=== PATIENT | female | born 1965 | race Caucasian/White ===

== ENCOUNTER → 2019-09-04 09:10 | Outpatient (CLI) | payer OTHER, SELFPAY ==
--- NOTE | ~2019-09-04 | MMUS_ITS ---
EXAMINATION: MM diagnostic shira RT w jaren, US breast RT limited HISTORY: Right breast asymmetries on screening mammogram TECHNIQUE: Additional 3-D tomosynthesis images of the right breast were performed and synthetic 2-D i mages were generated. CAD analysis was submitted and interpreted. High resolution limited right breas t ultrasound was performed. COMPARISON: 08/31/2019 FINDINGS: MAMMOGRAPHIC FINDINGS: There is a persistent bilobed asymmetry in the middle third of the outer breast at the 9:00 location 4.5 cm from the nipple. The asymmetry in the mediolateral oblique view described in the upper breast on screening mammogram does not persist with spot compression. No suspicious calcification is identif ied. ULTRASOUND: There is a 7 mm x 4 mm oval, circumscribed, parallel, hypoechoic mass with no posterior features or i nternal vascularity at the 9:00 location 2 cm from the nipple. A 3 mm x 2 mm mass with similar sonogr aphic features is seen at the 10:00 location 7 cm from the nipple. IMPRESSION: 1. Probably benign right breast findings. 2. Recommend 6 month follow-up right diagnostic mammogram and ultrasound. BI-RADS category 3, probably benign findings. Reviewed, dictated and finalized at location A. IMPRESSION: 1. Probably benign right breast findings. 2. Recommend 6 month follow-up right diagnostic mammogram and ultrasound. BI-RADS category 3, probably benign findings.
== END ==
DX: N64.89 Other specified disorders of breast (principal); R92.8 Other abnormal and inconclusive findings on diagnostic imaging of breast
CPT/HCPCS: 76642; 77061; 77065; G0279

== ENCOUNTER → 2020-04-18 08:38 | Outpatient (CLI) | payer OTHER, SELFPAY ==
--- NOTE | ~2020-04-18 | MMUS_ITS ---
EXAMINATION: MM diagnostic shira RT w jaren, US breast RT limited HISTORY: Six-month follow-up TECHNIQUE: ML, MLO and cc full field and spot 3-D tomosynthesis images of the right breast were perfo rmed and synthetic 2-D images were generated. CAD analysis was submitted and interpreted. High resolu tion breast ultrasound was performed. COMPARISON: 09/04/2019 diagnostic right digital mammogram and limited right breast ultrasound BREAST PARENCHYMAL COMPOSITION: There are scattered areas of fibroglandular density. FINDINGS: MAMMOGRAPHIC FINDINGS: Stable approximate 5 x 20 mm bilobed opacity in the outer mid right breast. Stable 4 mm circumscribed opacity in the anterior outer mid right breast. ULTRASOUND: 10:00 4 cm from nipple: Circumscribed hypoechoic 5.4 x 6.4 x 6.1 mm lesion without internal vasculari ty or posterior shadowing 9:00 2 cm from nipple: Parallel circumscribed hypoechoic 6.2 x 4.1 x 5.9 mm hypoechoic lesion without internal vascularity or posterior shadowing. No suspicious solid lesion or shadowing is noted. IMPRESSION: 1. Probable benign hypoechoic subcentimeter solid lesions at 9:00 and 10:00 2. 6 month diagnostic right mammogram and right targeted breast ultrasound examination are recommende d BI-RADS category 3, probably benign findings. Reviewed, dictated and finalized at location A. IMPRESSION: 1. Probable benign hypoechoic subcentimeter solid lesions at 9:00 and 10:00 2. 6 month diagnostic right mammogram and right targeted breast ultrasound exam ination are recommended BI-RADS category 3, probably benign findings.
== END ==
PROVIDERS: Visit Provider Nurse Practitioner
DX: R92.8 Other abnormal and inconclusive findings on diagnostic imaging of breast (principal)
CPT/HCPCS: 76642; 77061; 77065; G0279

== ENCOUNTER 2020-10-17 13:58 | Outpatient (CLI) | payer OTHER, SELFPAY ==
--- NOTE | ~2020-10-17 | MMUS_ITS ---
EXAMINATION: MM diagnostic shira BI w jaren, US breast RT limited HISTORY: Six-month follow-up for probably benign right breast mass TECHNIQUE: Craniocaudal, mediolateral, and mediolateral oblique 3-D tomosynthesis images of the aleah ts were performed and synthetic 2-D images were generated. CAD analysis was submitted and interpreted . High resolution limited right breast ultrasound was performed. COMPARISON: 04/18/2020, 09/04/2019, 08/31/2019 BREAST PARENCHYMAL COMPOSITION: There are scattered areas of fibroglandular density. FINDINGS: MAMMOGRAPHIC FINDINGS: Right breast: Again seen is a bilobed asymmetry in the middle third of the outer breast at the 9:00 l ocation 4.5 cm from the nipple on the mediolateral oblique view. There has been no suspicious interva l change. No suspicious calcification or architectural distortion are identified. Left breast: There is no evidence of suspicious mass, calcification, or architectural distortion to suggest malignancy. There has been no suspicious interval change. ULTRASOUND: The previously described mass at the 10:00 location is no longer identified. A stable 7 mm x 4 mm ova l, circumscribed, parallel, hypoechoic mass is present at the 9:00 location 4 cm from the nipple. The re is questionable posterior acoustic shadowing on some images however the mass otherwise remains unc hanged. IMPRESSION: 1. Probably benign right breast mass. 2. Recommend 6 month follow-up right diagnostic mammogram and ultrasound. BI-RADS category 3, probably benign findings. Reviewed, dictated and finalized at location A. IMPRESSION: 1. Probably benign right breast mass. 2. Recommend 6 month follow-up right diagnostic mammogram and ultrasound. BI-RADS category 3, probably benign findings.
== END 2020-10-17 13:59 ==
PROVIDERS: PCP Nurse Practitioner; Visit Provider Nurse Practitioner
DX: R92.8 Other abnormal and inconclusive findings on diagnostic imaging of breast (principal)
CPT/HCPCS: 76642; 77062; 77066; G0279

== ENCOUNTER → 2021-04-20 09:22 | Outpatient (CLI) | payer OTHER, SELFPAY ==
--- NOTE | ~2021-04-20 | MMUS_ITS ---
EXAMINATION: MM diagnostic shira RT w jaren, US breast RT limited HISTORY: Probably benign right breast mass; six-month follow-up from 10/17/2020 bilateral diagnostic m ammogram and limited right breast ultrasound examination TECHNIQUE: ML, MLO and craniocaudal full field and spot 3-D tomosynthesis images of the right breast were performed and synthetic 2-D images were generated. CAD analysis was submitted and interpreted. H igh resolution targeted 9:00 and 10:00 right breast ultrasound was performed. COMPARISON: bilateral diagnostic mammogram and limited right breast ultrasound 04/18/2020, 09/04/2019 diagnostic right mammogram and limited right breast ultrasound 08/31/2019 bilateral digital screening mammogram BREAST PARENCHYMAL COMPOSITION: There are scattered areas of fibroglandular density. FINDINGS: MAMMOGRAPHIC FINDINGS: 3.8 x 9 mm and directly posterior contiguous 4 x 8 mm circumscribed opacities are noted in the outer mid right breast. Benign-appearing 5.5 mm axillary tail low-density circumscribed density with fatty hilus, consistent with axillary tail lymph node. No suspicious mass, architectural distortion, malignant calcification, skin thickening or retraction is detected. ULTRASOUND: There are directly contiguous parallel circumscribed hypoechoic solid lesions measuring 3.1 x 6.6 x 5 .1 mm and 3.6 x 6.1 x 7.4 mm. IMPRESSION: 1. Probable benign findings at 9:00 2. 6 month diagnostic right mammogram and right breast ultrasound follow-up are recommended. BI-RADS category 3, probably benign findings. Reviewed, dictated and finalized at location A. IMPRESSION: 1. Probable benign findings at 9:00 2. 6 month diagnostic right mammogram and right breast ultrasound follow-up are recommended. BI-RADS category 3, probably benign findings.
== END ==
PROVIDERS: PCP Nurse Practitioner; Visit Provider Nurse Practitioner
DX: R92.8 Other abnormal and inconclusive findings on diagnostic imaging of breast (principal)
CPT/HCPCS: 76642; 77061; 77065; G0279

== ENCOUNTER → 2021-04-29 10:54 | Outpatient (CLI) | payer OTHER, SELFPAY ==
--- NOTE | ~2021-04-29 | XR_ITS ---
EXAMINATION: XR hip RT min 2V DATE: 04/29/2021 11:08 INDICATION: Trochanteric bursitis of the right hip TECHNIQUE: Two views of right hip were obtained. COMPARISON: None. FINDINGS: Bone alignment is normal. There is no fracture. The soft tissues are unremarkable. A surgic al clip is present in the pelvis. IMPRESSION: 1. No acute osseous abnormality. Reviewed, dictated and finalized at location B.
== END ==
PROVIDERS: PCP Nurse Practitioner; Visit Provider Nurse Practitioner
DX: M70.61 Trochanteric bursitis, right hip (principal)
CPT/HCPCS: 73502

== ENCOUNTER 2023-10-26 13:08 | Outpatient (CLI) | payer OTHER, SELFPAY ==
--- NOTE | ~2023-10-26 | MM_ITS ---
EXAMINATION: MM screening shira BI w jaren HISTORY: Screening TECHNIQUE: Craniocaudal and mediolateral oblique 3-D tomosynthesis images were obtained and synthetic 2-D images were generated. CAD analysis was submitted and interpreted. COMPARISON: Comparison to multiple prior studies sequentially, with oldest reviewed study dated 11/2019. BREAST PARENCHYMAL COMPOSITION: There are scattered areas of fibroglandular density. FINDINGS: There is no evidence of suspicious mass, calcification, or architectural distortion to sugg est malignancy in either breast. There has been no suspicious interval change. IMPRESSION: 1. No mammographic evidence of malignancy. 2. Recommend routine screening mammography in one year. BI-RADS Category 1: Negative Reviewed, dictated and finalized at location B.
== END 2023-10-26 13:09 ==
PROVIDERS: PCP Nurse Practitioner; Visit Provider Nurse Practitioner
DX: Z12.31 Encounter for screening mammogram for malignant neoplasm of breast (principal)
CPT/HCPCS: 77063; 77067